=== PATIENT | female | born 1980 | race Caucasian/White ===

== ENCOUNTER 2023-05-04 09:34 | Emergency (ER) | payer MEDICAID ==
[~2023-05-04] VITALS: Ht 167.6 cm; Wt 89.6 kg
[~2023-05-04 09:34] MED LIST: CYCL-1 PO; NO HOME MEDS; TETR15DR26 OP
[2023-05-04 10:01] VITALS: BP 141/88; PULSE 91; RESP 16; TEMP 97.8; O2SAT 99
[2023-05-04] MEDS ORDERED: AMOX-580 PO (10:46)
[2023-05-04] MEDS: dexamethasone sod phosphate 10mg/ml inj PO STA (10:55)
== END 2023-05-04 10:58 | disposition home or self-care (01) ==
LOC: ER 09:34
DX: J03.90 Acute tonsillitis, unspecified (principal); F12.90 Cannabis use, unspecified, uncomplicated; Z86.711 Personal history of pulmonary embolism; Z79.899 Other long term (current) drug therapy
CPT/HCPCS: 99283; J1100